=== PATIENT | male | born 1965 | race Caucasian/White ===

== ENCOUNTER 2016-12-30 14:43 | Emergency (ER) | payer OTHER ==
[~2016-12-30] VITALS: Ht 177.8 cm; Wt 119.0 kg
[2016-12-30 15:48] VITALS: BP 144/88; PULSE 99; RESP 19; TEMP 98.9; O2SAT 98
[2016-12-30 16:17] LABS: AUTOMATED NEUTROPHIL # 11.5 TH/MM3 (1.8-7.7); BASOPHIL # 0.1 TH/MM3 (0-0.2); BASOPHIL % 0.4 % (0.0-2.0); EOSINOPHIL # 0.2 TH/MM3 (0-0.4); EOSINOPHIL % 1.5 % (0.0-4.0); HEMATOCRIT 46.7 % (39.0-51.0); HEMO FLAGS DIFF FINAL; LYMPH % 11.2 % (9.0-44.0); LYMPHOCYTE # 1.6 TH/MM3 (1.0-4.8); MEAN CELL VOLUME 91.2 FL (80.0-100.0); MEAN CORPUSCULAR HEMOGLOBIN 30.6 PG (27.0-34.0); MEAN CORPUSCULAR HGB CONC 33.6 % (32.0-36.0); NEUT % 81.9 % (16.0-70.0); PLATELET COUNT 344 TH/MM3 (150-450); RED BLOOD COUNT 5.12 MIL/MM3 (4.50-5.90); RED CELL DISTRIBUTION WIDTH 13.3 % (11.6-17.2)
--- NOTE | 2016-12-30 16:19 | PD ---
HPI Chief Complaint: Psychiatric Symptoms Time Seen by Provider: 16:18 Travel History International Travel<30 days: No Contact w/Intl Traveler<30days: No Traveled to known affect area: No History of Present Illness HPI 51 YO M with PMH of PTSD, MDD with psychotic features presents to the ED under Delgado Act by the [facility] for psychiatric evaluation. According to Delgado act paper work the direction told his psychiatric provider that "he is having thoughts of harming himself" and "does not want to live any longer." Per the paperwork the patient also reported that he is experiencing suicidal thoughts for the last 2 days. On presentation the patient reports "feeling like I could go to sleep and never wake up" but denies active SI. He denies a specific plan. He endorses several stressors including "I'm having chronic pain" and "my is leaving me." He reports chronic neuropathy is in the lower extremities secondary to bulging disks in the neck. He is being evaluated on an outpatient basis through the IN. He denies other somatic complaints. [facility] Social History Tobacco Use: No Allergies-Medications (Allergen,Severity, Reaction): Coded Allergies: No Known Allergies (Unverified , 12/30/16) Reported Meds & Prescriptions Reported Meds & Active Scripts Active Reported Prazosin (Prazosin HCl) 2 Mg Cap 4 Mg PO HS Pravastatin 10 Mg Tab 10 Mg PO HS Omeprazole 20 Mg Cap 1 Tab PO TIDAC PRN Procardia (Nifedipine) 10 Mg Cap 30 Mg PO DAILY Melatonin 3 Mg Tab 2 Tab PO HS Allerclear (Loratadine) 10 Mg Tablet 1 Tab PO DAILY ZyrTEC Itchy Eye Opth Drops (Ketotifen Opth Drops) 0.025% Drops 1 Drop EACH EYE BID PRN Gabapentin 300 Mg Cap 300 Mg PO TID Duloxetine DR (Duloxetine HCl) 60 Mg Capdr 120 Mg PO DAILY Diclofenac Topical 1% Gel 1 Applic TOPICAL TID Benazepril (Benazepril HCl) 40 Mg Tab 40 Mg PO DAILY Azithromycin 500 Mg Tab 500 Mg PO DAILY Acetaminophen 325 Mg Capsule 2 Cap PO TID Allopurinol 300 Mg Tab 300 Mg PO DAILY Review of Systems Except as stated in HPI: all other systems reviewed are Neg Physical Exam Narrative GENERAL: Well-nourished, well-developed white male in no acute distress. PSYCHIATRIC: Impatient. Quick to anger. SKIN: Focused skin assessment warm/dry. Well-healed scar on the lower right abdomen without signs of infection. HEAD: Normocephalic. EYES: No scleral icterus. No injection or drainage. NECK: Supple, trachea midline. No JVD or lymphadenopathy. CARDIOVASCULAR: Regular rate and rhythm without murmurs, gallops, or rubs. RESPIRATORY: Breath sounds clear and equal bilaterally. No accessory muscle use. GASTROINTESTINAL: Abdomen soft, non-tender, nondistended. Active bowel sounds. MUSCULOSKELETAL: No cyanosis, or edema. NEUROLOGICAL: Awake and alert. Cranial nerves II through XII intact. Motor and sensory grossly within normal limits. Five out of 5 muscle strength in all muscle groups. Normal speech. BACK: Nontender without obvious deformity. No CVA tenderness. Data Data Last Documented VS Vital Signs Date Time Temp Pulse Resp B/P Pulse Ox O2 Delivery O2 Flow Rate FiO2 12/30/16 18:03 98 18 142/98 98 Room Air 12/30/16 15:48 98.9 Orders Complete Blood Count With Diff (12/30/16 15:51) Comprehensive Metabolic Panel (12/30/16 15:51) Psych Screen (12/30/16 15:51) Drug Screen, Random Urine (12/30/16 15:51) Acetamin-Hydrocod 325-7.5 Mg ([place] 7.5 (12/30/16 18:15) Lorazepam (Ativan) (12/30/16 18:15) Labs Laboratory Tests Test 12/30/16 16:00 White Blood Count 14.0 TH/MM3 Red Blood Count 5.12 MIL/MM3 Hemoglobin 15.7 GM/DL Hematocrit 46.7 % Mean Corpuscular Volume 91.2 FL Mean Corpuscular Hemoglobin 30.6 PG Mean Corpuscular Hemoglobin 33.6 % Concent Red Cell Distribution Width 13.3 % Platelet Count 344 TH/MM3 Mean Platelet Volume 6.7 FL Neutrophils (%) (Auto) 81.9 % Lymphocytes (%) (Auto) 11.2 % Monocytes (%) (Auto) 5.0 % Eosinophils (%) (Auto) 1.5 % Basophils (%) (Auto) 0.4 % Neutrophils # (Auto) 11.5 TH/MM3 Lymphocytes # (Auto) 1.6 TH/MM3 Monocytes # (Auto) 0.7 TH/MM3 Eosinophils # (Auto) 0.2 TH/MM3 Basophils # (Auto) 0.1 TH/MM3 CBC Comment DIFF FINAL Differential Comment Sodium Level 140 MEQ/L Potassium Level 4.1 MEQ/L Chloride Level 104 MEQ/L Carbon Dioxide Level 27.5 MEQ/L Anion Gap 9 MEQ/L Blood Urea Nitrogen 14 MG/DL Creatinine 1.16 MG/DL Estimat Glomerular Filtration 67 ML/MIN Rate Random Glucose 89 MG/DL Calcium Level 9.4 MG/DL Total Bilirubin 0.4 MG/DL Aspartate Amino Transf 30 U/L (AST/SGOT) Alanine Aminotransferase 49 U/L (ALT/SGPT) Alkaline Phosphatase 154 U/L Total Protein 8.3 GM/DL Albumin 4.2 GM/DL Urine Opiates Screen NEG Urine Barbiturates Screen NEG Urine Amphetamines Screen NEG Urine Benzodiazepines Screen NEG Urine Cocaine Screen NEG Urine Cannabinoids Screen NEG MDM Medical Decision Making Medical Screen Exam Complete: Yes Emergency Medical Condition: Yes Differential Diagnosis Adjustment disorder versus anxiety versus bipolar versus chronic pain versus depression versus dementia versus electrolyte disorder versus malingering versus mood disorder versus ODD versus psychosis versus PTSD versus schizophrenia versus schizoaffective disorder versus substance-induced mood disorder versus other Narrative Course 51 YO M with PMH of PTSD, MDD with psychotic features presents to the ED under Delgado Act by the [facility] for psychiatric evaluation. According to Delgado act paper work the direction told his psychiatric provider that "he is having thoughts of harming himself" and "does not want to live any longer." On presentation the patient reports "feeling like I could go to sleep and never wake up" but denies active SI. He denies a specific plan. He endorses several stressors including "I'm having chronic pain" and "my is leaving me." He reports chronic neuropathy is in the lower extremities secondary to bulging disks in the neck. He is being evaluated on an outpatient basis through the IN. He denies other somatic complaints. Vitals reviewed. Physical exam reveals an inpatient, quick to anger white male in no acute distress. No focal neuro deficits. Lab work is unremarkable. The patient was administered 1 mg Ativan and 7.5 Lortab by mouth. He is medically clear for psychiatric evaluation. Diagnosis Primary Impression: Medical clearance for psychiatric admission Additional Impression: Chronic pain Qualified Code: G89.29 - Other chronic pain Carolyn Neri Dec 30, 2016 16:18
[2016-12-30 16:23] LABS: AMPHETAMINE, URINE NEG (NEG); BARBITURATES, URINE NEG (NEG); COCAINE, URINE NEG (NEG)
[2016-12-30 16:34] LABS: ALT (GPT) 49 U/L (12-78); ANION GAP 9 MEQ/L (5-15); AST (GOT) 30 U/L (15-37); BICARBONATE 27.5 MEQ/L (21.0-32.0); BLOOD UREA NITROGEN 14 MG/DL (7-18); CHLORIDE 104 MEQ/L (98-107); GLOMERULAR FILTRATION RATE 67 ML/MIN (>89); POTASSIUM 4.1 MEQ/L (3.5-5.1); SODIUM (NA) 140 MEQ/L (136-145)
[2016-12-30 16:37] LABS: ALKALINE PHOSPHATASE 154 U/L (45-117); TOTAL BILIRUBIN ADULT 0.4 MG/DL (0.2-1.0)
[2016-12-30] MEDS ORDERED: KLS10TAB6 PO (17:33)
[2016-12-30] MEDS ORDERED: DULO1CAP3 PO (17:33)
[2016-12-30] MEDS ORDERED: DICL1GEL7 TOPICAL (17:33)
[2016-12-30] MEDS ORDERED: KETO0.02 EACH EYE (17:33)
[2016-12-30] MEDS ORDERED: NIFE10 PO (17:33)
[2016-12-30] MEDS ORDERED: GABA300C5 PO (17:33)
[2016-12-30] MEDS ORDERED: PRAV10TA PO (17:33)
[2016-12-30] MEDS ORDERED: OMEP20CA2 PO (17:33)
[2016-12-30] MEDS ORDERED: MELA3TAB PO (17:33)
[2016-12-30] MEDS ORDERED: AZIT500T2 PO (17:33)
[2016-12-30] MEDS ORDERED: ACET325C PO ×2 (17:33)
[2016-12-30] MEDS ORDERED: ALLO300T2 PO (17:33)
[2016-12-30] MEDS ORDERED: PRAZ2CAP PO (17:33)
[2016-12-30] MEDS ORDERED: BENA40TA PO (17:33)
[2016-12-30 18:03] VITALS: BP 142/98; PULSE 98; RESP 18; O2SAT 98
[2016-12-30] MEDS ORDERED: ACETAMINOPHEN/HYDROcodone 325 MG/7.5 MG TAB PO ONE (18:15)
[2016-12-30] MEDS ORDERED: LORazepam 1 MG TAB PO ONE (18:15)
[2016-12-30] MEDS ORDERED: GABAPENTIN 300 MG CAP PO ONE (20:30)
[2016-12-30] MEDS ORDERED: ACETAMINOPHEN 325 MG TAB PO ONE (20:30)
[2016-12-30] MEDS ORDERED: PRAZOSIN HCL 2 MG CAP PO ONE (20:45)
[2016-12-30] MEDS ORDERED: MELATONIN 5 MG TAB PO ONE (20:45)
[2016-12-30 22:00] VITALS: BP 162/92; PULSE 111; RESP 16; O2SAT 97
[2016-12-31 06:22] VITALS: BP 117/77; PULSE 88; RESP 16; O2SAT 97
[2016-12-31] MEDS ORDERED: ACETAMINOPHEN 325 MG TAB PO ONE (11:45)
[2016-12-31 12:07] VITALS: BP 117/77; PULSE 88; RESP 16; O2SAT 97
[2016-12-31 12:09] VITALS: BP_SYST 117
--- NOTE | 2016-12-31 12:14 | PD ---
History of Present Illness Chief Complaint: Psychiatric Symptoms Time Seen by Provider: 11:45 Travel History International Travel<30 Days: No Contact w/Intl Traveler<30days: No Known affected area: No Legal Status Legal Status: Delgado Act Edlgado Act Signed By: Gloria SHAY Delgado Act Comment: CERTIFICATE OF PROFESSIONAL INITIATING INVOLUNTARY EXAMINATION12/30/16@1400 History of Present Illness: History of Present Illness HPI The patient is a 51 year old male with PMH of PTSD, MDD who presents to the ED under Delgado Act initiated by the [facility] for psychiatric evaluation. According to Delgado act report he told his psychiatric provider that "he is having thoughts of harming himself" and "does not want to live any longer " and that that he is experiencing suicidal thoughts for the last 2 days. The patient denies that he said he was having suicidal ideation and admits to having said that " I would not mind going to sleep and not waking up". He did not make any attempts at harming himself. The EMR is reviewed. [place] previous contact [place] [facility] [place]. Current toxicology is negative for any substances. The patient was monitored in J pod and he presented no behavioral concerns and no suicidality. He is seen with nurse Miner present. The patient is alert, oriented, engaging and forthcoming. His speech is clear and logical. He denies any hallucinations , no delusions and no paranoia. he does not appear to be responding to internal stimuli. Mood is depressed. he acknowledges feeling frustrated with having to cope with persistent back pain but he is looking forward to an appointment he has on Wednesday to see a neurosurgeon. He denies any suicidal or homicidal ideation and states " I have a 7 year old daughter and 4 other kids. I have 3 grandchildren as well as my mother. I would not do that to them". He reports recent changes in his sleep pattern which is in general inconsistent. He receives psychiatric treatment at the NH and staes he is compliant with medication. He acknowledges that his decrease daily structure has contributed to increase in his symptoms. Psychiatric History Psychiatric History Hx Psychiatric Treatment: PTSD, MDD. receives outpatietn care at the [facility]. One previous hx of suicidal atempt at age 25 years of age by taking pills but then vomiting them. History of Inpatient Treatment: No Guns or firearms in home: No Social History Born in [place]. x 4 years. Lives with his and their 7 year old daughter. Retired in 2008 after serving 21 years. Hx Alcohol Use: No Hx Tobacco Use: No Hx Substance Use: No Hx of Substance Use Treatment: No Family Psychiatric History Negative Allergies-Medications (Allergen,Severity, Reaction): Coded Allergies: No Known Allergies (Unverified , 12/30/16) Reported Meds & Prescriptions Reported Meds & Active Scripts Active Reported Prazosin (Prazosin HCl) 2 Mg Cap 4 Mg PO HS Pravastatin 10 Mg Tab 10 Mg PO HS Omeprazole 20 Mg Cap 1 Tab PO TIDAC PRN Procardia (Nifedipine) 10 Mg Cap 30 Mg PO DAILY Melatonin 3 Mg Tab 2 Tab PO HS Allerclear (Loratadine) 10 Mg Tablet 1 Tab PO DAILY ZyrTEC Itchy Eye Opth Drops (Ketotifen Opth Drops) 0.025% Drops 1 Drop EACH EYE BID PRN Gabapentin 300 Mg Cap 300 Mg PO TID Duloxetine DR (Duloxetine HCl) 60 Mg Capdr 120 Mg PO DAILY Diclofenac Topical 1% Gel 1 Applic TOPICAL TID Benazepril (Benazepril HCl) 40 Mg Tab 40 Mg PO DAILY Azithromycin 500 Mg Tab 500 Mg PO DAILY Acetaminophen 325 Mg Capsule 2 Cap PO TID Allopurinol 300 Mg Tab 300 Mg PO DAILY Review of Systems Genitourinary: COMPLAINS OF: Sexual dysfunction Musculoskeletal: COMPLAINS OF: Back pain, Neck pain Psychiatric: COMPLAINS OF: Depression Exam Alert: Yes [place]: Person Mood: Calm Affect: Appropriate Speech: Clear, Logical Eye Contact: Normal Memory Intact: Comment (No impairmetn) Hallucinations: Other (Negative) Delusions: No Suicidal: Ideation (Denies any) Homicidal: Ideation (Denies any) Insight/Judgement Fair. Not impaired. MDM Medical Decision Making Medical Record Reviewed: Yes Assessment/Plan The patient is a 51 year old male with PMH of PTSD, MDD who presents to the ED under Delgado Act initiated by the [facility] for psychiatric evaluation. According to Delgado act report he told his psychiatric provider that "he is having thoughts of harming himself" and "does not want to live any longer " and that that he is experiencing suicidal thoughts for the last 2 days. The patient denies that he said he was having suicidal ideation and admits to having said that " I would not mind going to sleep and not waking up". The patient was monitored in secure environment and presented no suicidality. He denies current suicidal ideation and is future oriented. he has an appointment with a neurosurgeon on Wednesday and he has been waiting for this appointment for a long time. he has adequate protective factors in place. he contracts for safety and agrees to return to ED if any changes. At this time he does not meet BA criteria and is requesting discharge. I will lift BA and will [facility] Orders Complete Blood Count With Diff (12/30/16 15:51) Comprehensive Metabolic Panel (12/30/16 15:51) Psych Screen (12/30/16 15:51) Drug Screen, Random Urine (12/30/16 15:51) Acetamin-Hydrocod 325-7.5 Mg ([place] 7.5 (12/30/16 18:15) Lorazepam (Ativan) (12/30/16 18:15) Gabapentin (Neurontin) (12/30/16 20:30) Acetaminophen (Tylenol) (12/30/16 20:30) Prazosin (Minipress) (12/30/16 20:45) Melatonin (Melatonin) (12/30/16 20:45) Diet Regular Basic (12/31/16 Breakfast) Diet Regular Basic (12/31/16 Lunch) Acetaminophen (Tylenol) (12/31/16 11:45) Results Vital Signs Date Time Temp Pulse Resp B/P Pulse Ox O2 Delivery O2 Flow Rate FiO2 12/31/16 12:07 88 16 117/77 97 Room Air 12/31/16 06:22 88 16 117/77 97 12/30/16 22:00 111 16 162/92 97 Room Air 12/30/16 18:03 98 18 142/98 98 Room Air 12/30/16 15:48 98.9 99 19 144/88 98 Laboratory Tests Test 12/30/16 16:00 White Blood Count 14.0 Red Blood Count 5.12 Hemoglobin 15.7 Hematocrit 46.7 Mean Corpuscular Volume 91.2 Mean Corpuscular Hemoglobin 30.6 Mean Corpuscular Hemoglobin 33.6 Concent Red Cell Distribution Width 13.3 Platelet Count 344 Mean Platelet Volume 6.7 Neutrophils (%) (Auto) 81.9 Lymphocytes (%) (Auto) 11.2 Monocytes (%) (Auto) 5.0 Eosinophils (%) (Auto) 1.5 Basophils (%) (Auto) 0.4 Neutrophils # (Auto) 11.5 Lymphocytes # (Auto) 1.6 Monocytes # (Auto) 0.7 Eosinophils # (Auto) 0.2 Basophils # (Auto) 0.1 CBC Comment DIFF FINAL Differential Comment Sodium Level 140 Potassium Level 4.1 Chloride Level 104 Carbon Dioxide Level 27.5 Anion Gap 9 Blood Urea Nitrogen 14 Creatinine 1.16 Estimat Glomerular Filtration 67 Rate Random Glucose 89 Calcium Level 9.4 Total Bilirubin 0.4 Aspartate Amino Transf 30 (AST/SGOT) Alanine Aminotransferase 49 (ALT/SGPT) Alkaline Phosphatase 154 Total Protein 8.3 Albumin 4.2 Urine Opiates Screen NEG Urine Barbiturates Screen NEG Urine Amphetamines Screen NEG Urine Benzodiazepines Screen NEG Urine Cocaine Screen NEG Urine Cannabinoids Screen NEG Diagnosis Primary Impression: Post traumatic stress disorder Psychiatrically Cleared: Yes Med/ Other Pt Specific Info: No Change to Meds Disposition: 01 DISCHARGE HOME Condition: Stable Eliane Tineo Dec 31, 2016 12:14
== END 2016-12-31 12:40 | disposition home or self-care (01) ==
LOC: NEDAMB 14:43 → NEPJ 12-31 12:40
DX: Z02.89 Encounter for other administrative examinations (principal); G89.29 Other chronic pain; F43.10 Post-traumatic stress disorder, unspecified; G62.9 Polyneuropathy, unspecified; Z87.39 Personal history of other diseases of the musculoskeletal system and connective tissue; Z86.59 Personal history of other mental and behavioral disorders
CPT/HCPCS: 80053; 80307; 85025; 99283